=== PATIENT | female | born 1970 | race African-American/Black ===

== ENCOUNTER 2016-03-02 11:05 | Emergency (ER) | payer OTHER ==
[~2016-03-02] VITALS: Ht 165.1 cm; Wt 72.6 kg
[~2016-03-02 11:05] MED LIST: AMOXICILLIN500 MG PO; IBUPROFEN100 M1 PO; NKM; NORCO 5-325 TA1 EACH PO; PHENERGAN25 M1 PO; RANITIDINE HCL150 MG PO
[2016-03-02] MEDS ORDERED: Ketorolac 60mg Inj IM ONE (12:00)
[2016-03-02] MEDS ORDERED: IBUPROFEN600 MG ORAL (13:36)
[2016-03-02] MEDS ORDERED: TRAMADOL HCL50 MG ORAL (13:36)
[2016-03-02] MEDS ORDERED: ZITHROMAX250 MG ORAL (13:52)
[2016-03-02] MEDS ORDERED: PROMETHAZINE-D118 ML ORAL (13:52)
[2016-03-02 13:56] VITALS: BP 132/90
--- NOTE | 2016-03-02 14:05 | Diagnostic Imaging Report ---
Indication: The spine Comparison: 11/17/09 2 views of the chest obtained. Findings: Cardiomediastinal silhouette and pulmonary vascularity are within normal limits for age. The diaphragmatic contour is smooth and costophrenic angles are sharp. No pleural effusions are identified. The bones are unremarkable. Impression: No acute disease
--- NOTE | 2016-03-02 14:05 | Diagnostic Imaging Report ---
Indication: Pain Findings: 3 views of the right shoulder were obtained. No acute fractures, malalignment, erosions or periostitis are identified. Bone mineralization is within normal limits. Soft tissues are unremarkable. Impression: Negative examination of the shoulder.
--- NOTE | 2016-03-02 19:38 | Emergency Room Report ---
History of Present Illness General Chief Complaint: Pain Source: Patient Present Illness HPI Patient complains of severe R shoulder and chest pain. This began 2 days ago after working out (when initially felt) and then worsened after bowling with her children. Pain 10/10, sharp, worsened with moving her arm. Some also in chest. Tried to use ice but this worsened the pain and made it difficult to move here arm. No numbness of hand. R handed. Later she reports several days of URI sy with green sputum. Feverish. This preceded the shoulder pain. No NVD, not . Allergies: Coded Allergies: No Known Allergies (Verified Allergy, Unknown, 11/26/09) Patient History Past Medical History: see triage record Social History: Reports: smoking Social History Narrative [facility] Last Menstrual Period: 02/21/16 Reviewed Nursing Documentation: PMH: Agreed, PSxH: Agreed Nursing Documentation-PMH Hx Hypertension: Yes Hx COPD: Yes - CURRENT SMOKER Hx Diabetes: Yes Hx Gastrointestinal Problems: Yes Review of Systems Constitutional: Denies: fever ENT: Denies: throat pain Respiratory: Reports: see HPI Cardiovascular: Reports: see HPI Gastrointestinal: Reports: see HPI Genitourinary: Reports: see HPI Musculoskeletal: Reports: see HPI Skin: Denies: rash Neurological: Reports: see HPI Physical Exam Vital Signs Date Time Temp Pulse Resp B/P Pulse Ox O2 Delivery O2 Flow Rate FiO2 03/02/16 11:24 98.1 82 20 150/98 97 Room Air Sp02 EP Interpretation: reviewed, normal General Appearance: well appearing, no apparent distress, GCS 15 Head: normocephalic, atraumatic Eyes: bilateral eye PERRL, bilateral eye normal inspection ENT: hearing grossly normal, normal voice, moist mucus membranes Neck: full range of motion, supple Respiratory: lungs clear, no respiratory distress, speaking full sentences, other - some R chest wall tenderness Cardiovascular #1: regular rate, rhythm Cardiovascular #2: 2+ radial (R) Gastrointestinal: normal inspection Musculoskeletal: digits/nails normal, gait/station normal, no calf tenderness, decreased range of mation - R shoulder due to pain, no AC joint pain. No deformity. No elbow pain, hand with FROM. Neurologic: alert, motor strength/tone normal, sensory intact, normal gait Psychiatric: mood/affect normal Skin: no rash Medical Decision Making Diagnostic Impression: Primary Impression: Chest wall muscle strain Qualified Codes: S29.011A - Strain of muscle and tendon of front wall of thorax, initial encounter Additional Impressions: Right shoulder strain Qualified Codes: S46.911A - Strain of unspecified muscle, fascia and tendon at shoulder and upper arm level, right arm, initial encounter Bronchitis ER Course Patient presents with severe R shoulder and chest wall tenderness. DDx: strain , tendonitis, bursitis amongst others. Xrays indicated. Also analgesics ordered. Xrays normal. Improved with treatment. Sling applied by tech (had to wait as patient talking with customer support executive) and position excellent with normal neurovasc as examined by me. Patient stable for outpatient observation and treatment. At d/c , patient states has been coughing green phlegm. Insisting on antibiotics and cough medicine. She states she reported these sy at triage ( but review of notes does not show this). Chest X-Ray Diagnostic Results EP Interpretation: Yes Findings: no consolidation, no effusion, no pneumothorax Number of Views: 2 Other X-Ray Diagnostic Results Other X-Ray Diagnostic Results : X-Ray Ordered: R shoulder EP Interpretation: Yes Findings: no fractures, no dislocation, no soft tissue swelling, other - some min DJD Number of Views: 3 Last Vital Signs Date Time Temp Pulse Resp B/P Pulse Ox O2 Delivery O2 Flow Rate FiO2 03/02/16 13:56 66 16 132/90 100 Room Air 03/02/16 13:56 97.7 Status: improved Disposition: HOME, SELF-CARE Condition: Improved Scripts Azithromycin* (ZITHROMAX*) 250 Mg Tablet 250 MG ORAL DAILY, #6 TAB 0 Refills Take two tables once daily for 1 day, then one tablet once daily for 4 days. Prov: Ino Crook M.D. 03/02/16 D-Methorphan Hb/Prometh Hcl* (PROMETHAZINE-DM SYRUP*) 118 Ml Syrup 5 ML ORAL Q6H Y for For Cough, #60 ML 0 Refills Prov: Ino Crook M.D. 03/02/16 Ibuprofen* (MOTRIN*) 600 Mg Tablet 600 MG ORAL Q6H Y for For Pain, #20 TAB Prov: Ino Crook M.D. 03/02/16 Tramadol Hcl* (ULTRAM*) 50 Mg Tablet 50 MG ORAL Q6H Y for For Pain, #16 TAB 0 Refills Prov: Ino Crook M.D. 03/02/16 Patient Instructions: Muscle Strain Additional Instructions: Heat and rest. Follow up with your MD. Ino Crook M.D. Mar 02, 2016 19:38
== END 2016-03-02 13:56 | disposition home or self-care (01) ==
LOC: EMR 12:26
DX: S29.011A Strain of muscle and tendon of front wall of thorax, initial encounter (principal); S46.911A Strain of unspecified muscle, fascia and tendon at shoulder and upper arm level, right arm, initial encounter; X58.XXXA Exposure to other specified factors, initial encounter; Y93.9 Activity, unspecified; Y92.9 Unspecified place or not applicable; Y99.9 Unspecified external cause status; J40 Bronchitis, not specified as acute or chronic; M25.511 Pain in right shoulder; R07.9 Chest pain, unspecified; F17.200 Nicotine dependence, unspecified, uncomplicated; I10 Essential (primary) hypertension; E11.9 Type 2 diabetes mellitus without complications; J44.9 Chronic obstructive pulmonary disease, unspecified; Z87.19 Personal history of other diseases of the digestive system
CPT/HCPCS: 71020; 96372; 99283

== ENCOUNTER 2016-07-12 19:53 | Emergency (ER) | payer OTHER ==
[~2016-07-12] VITALS: Ht 165.1 cm; Wt 72.6 kg
[~2016-07-12 19:53] MED LIST changes: +IBUPROFEN600 MG ORAL; +PROMETHAZINE-D118 ML ORAL; +TRAMADOL HCL50 MG ORAL; +ZITHROMAX250 MG ORAL
[2016-07-12] MEDS ORDERED: Fluconazole 100mg tab ORAL ONE (21:30)
[2016-07-12] MEDS ORDERED: FLUCONAZOLE100 MG ORAL (21:31)
[2016-07-12 21:45] VITALS: BP 138/96
--- NOTE | 2016-07-16 13:01 | Emergency Room Report ---
History of Present Illness General Chief Complaint: Vaginal Source: Patient Present Illness HPI Is a 45-year-old female presented after increased vaginal discharge. Patient reported having increased white discharge. Patient reported having no recent change in sexual partners. Patient reported having recent use of a skin care products which may have caused some irritation. The patient denied fever. She denied any severe pain. Allergies: Coded Allergies: No Known Allergies (Verified Allergy, Unknown, 11/26/09) Patient History Past Medical History: see triage record Last Menstrual Period: JUNE 25 Now: No : 6 Para: 2 Reviewed Nursing Documentation: PMH: Agreed, PSxH: Agreed Nursing Documentation-PM Past Medical History: No Stated History Hx Hypertension: Yes Hx COPD: Yes - CURRENT SMOKER Hx Diabetes: Yes Hx Gastrointestinal Problems: Yes Review of Systems All Other Systems: negative except mentioned in HPI Physical Exam Vital Signs Date Time Temp Pulse Resp B/P Pulse Ox O2 Delivery O2 Flow Rate FiO2 07/12/16 20:23 97.9 112 18 138/96 99 Room Air General Appearance: well appearing, no apparent distress Head: normocephalic, atraumatic ENT: hearing grossly normal, normal voice Neck: full range of motion, supple Respiratory: no respiratory distress, speaking full sentences Genitourinary: other - white vaginal discharge, no cmt or adnexal tenderness Musculoskeletal: no calf tenderness Neurologic: normal gait Psychiatric: mood/affect normal Skin: no rash Medical Decision Making Diagnostic Impression: Primary Impression: Vaginitis ER Course Patient presented for vaginal discharge. Differential diagnosis included was not limited to bacterial vaginosis, gonorrhea, Chlamydia, , yeast infection among others. Patient's benign exam and does not appear to require any further imaging or laboratory testing at this time. Patient was empirically treated with Diflucan for or what appears to be yeast infection.The patient is advised to follow up with [facility] in 1-2 days. Patient is advised to return if any worsening condition or if any changes in status that are concerning. Last Vital Signs Date Time Temp Pulse Resp B/P Pulse Ox O2 Delivery O2 Flow Rate FiO2 07/12/16 21:45 97.9 18 138/96 99 Room Air 07/12/16 20:23 112 Status: improved Disposition: HOME, SELF-CARE Condition: Stable Scripts Fluconazole (FLUCONAZOLE) 100 Mg Tablet 100 MG ORAL DAILY, #1 TAB 0 Refills Prov: Daniel Prabhakar 07/12/16 Referrals: STACI [facility]N,REFERRI (PCP) Patient Instructions: Vaginitis Daniel Prabhakar July 16, 2016 13:01
== END 2016-07-12 21:45 | disposition home or self-care (01) ==
LOC: EMR 20:55
DX: N76.0 Acute vaginitis (principal); J44.9 Chronic obstructive pulmonary disease, unspecified; F17.200 Nicotine dependence, unspecified, uncomplicated; E11.9 Type 2 diabetes mellitus without complications; I10 Essential (primary) hypertension
CPT/HCPCS: 99283

== ENCOUNTER 2016-09-08 13:27 | Emergency (ER) | payer OTHER ==
[~2016-09-08] VITALS: Ht 165.1 cm; Wt 68.5 kg
[~2016-09-08 13:27] MED LIST changes: +FLUCONAZOLE100 MG ORAL
[2016-09-08 14:00] VITALS: BP 124/78
[2016-09-08] MEDS: Norco 7.5mg/325mg tab ORAL ONE ×2 (14:15→14:53)
[2016-09-08 14:18] LABS: APPEARANCE,URINE SLIGHTLY CLOUDY; KETONES,URINE NEGATIVE (NEGATIVE); LEUKOCYTE ESTERASE ,URINE 1+ (NEGATIVE); NITRITE,URINE NEGATIVE (NEGATIVE); PH,URINE 5 (4.5-8.0); PROTEIN,URINE 1+ (NEGATIVE); UROBILINOGEN,URINE 1 MG/DL (0.0-1.0)
[2016-09-08 14:28] LABS: BACTERIA,URINE FEW /HPF; ICTOTEST NEGATIVE; RBC,URINE 60-80 /HPF (0 - 2); SQUAMOUS EPITHELIAL CELL,UR FEW /LPF (NONE/OCC)
--- NOTE | 2016-09-08 14:43 | Emergency Room Report ---
History of Present Illness General Chief Complaint: Female Urogenital Problems Source: Patient Present Illness HPI 45-year-old female presents to the emergency department complaining of abdominal cramping rated as 9/10 in severity with vaginal bleeding x3 days. Patient states that she just finished her period on August 23 and that she has always been very regular every 28 days. Patient denies history of fibroids, STDs, ovarian cyst. Patient denies . Patient also reports several episodes of loose stool. She denies dysuria, flank pain, nausea, vomiting, fevers, chills, rashes. Patient states her pain is generalized , however primarily in the lower midline abdomen. she denies blood in the stool or black tarry stools. She denies past medical history otherwise she denies medications. Denies CP, Palpitations, LOC, AMS, dizziness, Changes in Vision, Sensation, paresthesias, or a sudden severe headache.. Allergies: Coded Allergies: No Known Allergies (Verified Allergy, Unknown, 11/26/09) Patient History Past Medical History: see triage record Past Surgical History: none Pertinent Family History: none Last Menstrual Period: Now: No Immunizations: UTD Reviewed Nursing Documentation: PMH: Agreed, PSxH: Agreed Nursing Documentation-PMH Past Medical History: No Stated History Hx Hypertension: Yes Hx COPD: Yes - CURRENT SMOKER Hx Diabetes: Yes Hx Gastrointestinal Problems: Yes Review of Systems All Other Systems: negative except mentioned in HPI Physical Exam Vital Signs Date Time Temp Pulse Resp B/P Pulse Ox O2 Delivery O2 Flow Rate FiO2 09/08/16 13:44 98.2 86 20 115/75 98 Sp02 EP Interpretation: reviewed, normal General Appearance: no apparent distress, alert, GCS 15, non-toxic Head: normocephalic, atraumatic Eyes: bilateral eye PERRL, bilateral eye normal inspection ENT: hearing grossly normal, normal pharynx, no angioedema, normal voice Neck: full range of motion, supple/symm/no masses Respiratory: chest non-tender, lungs clear, normal breath sounds, speaking full sentences Cardiovascular #1: regular rate, rhythm, no edema Gastrointestinal: normal bowel sounds, non tender, soft, no guarding, no rebound, other - Negative [place] signs, Negative [place]Bur[place]'s sign, Negative Rosvigns Sign, Negative Psoas, No Peritoneal signs. Rectal: deferred Genitourinary: normal inspection, no CVA tenderness Musculoskeletal: back normal, gait/station normal, normal range of motion, non- tender, no calf tenderness Neurologic: alert, oriented x3, responsive, motor strength/tone normal, sensory intact, speech normal Psychiatric: judgement/insight normal, memory normal, mood/affect normal Skin: normal color, no rash, warm/dry, well hydrated Lymphatic: no adenopathy Medical Decision Making PA Attestation Dr. emery is my supervising Physician whom patient management has been discussed with. Diagnostic Impression: Primary Impression: Ovarian cyst Additional Impression: Uterine fibroid Qualified Codes: D25.9 - Leiomyoma of uterus, unspecified ER Course 45-year-old female presents to the emergency department complaining of abdominal cramping rated as 9/10 in severity with vaginal bleeding x3 days. Patient states that she just finished her period on August 23 and that she has always been very regular every 28 days. Patient denies history of fibroids, STDs, ovarian cyst. Patient denies . Patient also reports several episodes of loose stool. She denies dysuria, flank pain, nausea, vomiting, fevers, chills, rashes. Patient states her pain is generalized , however primarily in the lower midline abdomen. she denies blood in the stool or black tarry stools. She denies past medical history otherwise she denies medications. Denies CP, Palpitations, LOC, AMS, dizziness, Changes in Vision, Sensation, paresthesias, or a sudden severe headache.. Ddx considered but are not limited to DUB, Fibroids, miscarriage, diverticulitis, PID, tubo-ovarian abscess, ovarian cyst. Vital signs: are WNL, pt. is afebrile H&PE are most consistent with ORDERS: -CBC, CMP, LIPASE: unremarkable other than mild anemia -UA: presence of occult blood and rbc consistent with vaginal bleeding. no infection noted. -URINE HCG: negative -Pelvic US Complete: positive for uterine fibroids, ruptured ovarian cyst, no free fluid in the culdesac per preliminary US report. ED INTERVENTIONS: - Pt. declined [place] PO and states she is nauseated and wants IV pain medication -- pt noted to be actively eating doughnuts, and fast food that she brought with her to ED. no witnessed episodes of vomiting, noted to be tolerating food well. - 60mg IM Toradol DISCHARGE: At this time pt. is stable for d/c to home. Will provide printed patient care instructions, and any necessary prescriptions. Care plan and follow up instructions have been discussed with the patient prior to discharge. Labs Test 09/08/16 14:01 09/08/16 14:41 Urine Color [place] Urine Appearance Slightly cloudy Urine pH 5 (4.5-8.0) Urine Specific [place] 1.025 (1.005-1.035) Urine Protein 1+ (NEGATIVE) Urine Glucose (UA) Negative (NEGATIVE) Urine Ketones Negative (NEGATIVE) Urine Occult Blood 5+ (NEGATIVE) Urine Nitrite Negative (NEGATIVE) Urine Bilirubin Negative (NEGATIVE) Urine Ictotest Negative Urine Urobilinogen 1 MG/DL (0.0-1.0) Urine Leukocyte Esterase 1+ (NEGATIVE) Urine RBC 60-80 /HPF (0 - 2) Urine WBC 2-4 /HPF (0 - 2) Urine Squamous Epithelial Cells Few /LPF (NONE/OCC) Urine Bacteria Few /HPF (NONE) Urine HCG, Qualitative Negative White Blood Count 5.3 K/UL (4.8-10.8) Red Blood Count 4.28 M/UL (4.20-5.40) Hemoglobin 10.4 G/DL (12.0-16.0) Hematocrit 35.4 % (37.0-47.0) Mean Corpuscular Volume 83 FL (80-99) Mean Corpuscular Hemoglobin 24.4 PG (27.0-31.0) Mean Corpuscular Hemoglobin Concent 29.5 G/DL (32.0-36.0) Red Cell Distribution Width 16.5 % (11.6-14.8) Platelet Count 474 K/UL (150-450) Mean Platelet Volume 5.6 FL (6.5-10.1) Neutrophils (%) (Auto) 45.8 % (45.0-75.0) Lymphocytes (%) (Auto) 42.0 % (20.0-45.0) Monocytes (%) (Auto) 10.2 % (1.0-10.0) Eosinophils (%) (Auto) 0.7 % (0.0-3.0) Basophils (%) (Auto) 1.4 % (0.0-2.0) Sodium Level 138 mEQ/L (135-145) Potassium Level 3.5 mEQ/L (3.4-4.9) Chloride Level 103 mEQ/L (98-107) Carbon Dioxide Level 26 mEQ/L (20-30) Anion Gap 9 (5-15) Blood Urea Nitrogen 6 mg/dL (7-23) Creatinine 0.9 mg/dL (0.5-0.9) Estimat Glomerular Filtration Rate > 60 mL/min (>60) Glucose Level 83 mg/dL (74-106) Calcium Level 9.1 mg/dL (8.6-10.2) Total Bilirubin 0.3 mg/dL (0.0-1.2) Aspartate Amino Transf (AST/SGOT) 15 U/L (5-40) Alanine Aminotransferase (ALT/SGPT) 14 U/L (3-33) Alkaline Phosphatase 45 U/L (35-104) Total Protein 6.9 g/dL (6.6-8.7) Albumin 4.0 g/dL (3.5-5.2) Globulin 2.9 g/dL Albumin/Globulin Ratio 1.3 (1.0-2.7) Lipase 25 U/L (< 60) Last Vital Signs Date Time Temp Pulse Resp B/P Pulse Ox O2 Delivery O2 Flow Rate FiO2 09/08/16 13:44 98.2 86 20 115/75 98 Disposition: HOME, SELF-CARE Condition: Stable Scripts Hydrocodone Bit/Acetaminophen 5-325* (NORCO 5-325 TABLET*) 1 Each Tablet 1 TAB ORAL Q6HR Y for For Pain, #10 TAB Prov: Geovanna Mahoney P.A. 09/08/16 Ibuprofen* (MOTRIN*) 600 Mg Tablet 600 MG ORAL THREE TIMES A DAY, #30 TAB 0 Refills Prov: Geovanna Mahoney P.A. 09/08/16 Patient Instructions: Medical Screening Exam, Ovarian Cyst, Uterine Fibroids Additional Instructions: Take medications as directed. Follow up with a Primary Care Provider for OBGYN referral in 3-5 days, even if your symptoms have resolved. --Please review list of primary care clinics, if you do not already have a primary care provider, or OBGYN Return sooner if new symptoms occur, or current symptoms become worse. - Please note that this Emergency Department Report was dictated using dooubshank inspector technology software, occasionally this can lead to erroneous entry secondary to interpretation by the dictation equipment. Geovanna Mahoney Sep 08, 2016 14:43
[2016-09-08] MEDS ORDERED: Ketorolac 30mg Inj IV ONE (15:00)
[2016-09-08 15:05] LABS: BASOPHILS % (AUTO) 1.4 % (0.0-2.0); EOSINOPHILS % (AUTO) 0.7 % (0.0-3.0); MEAN CORPUSCULAR HEMOGLOBIN 24.4 PG (27.0-31.0); MEAN CORPUSCULAR HGB CONC 29.5 G/DL (32.0-36.0); MEAN CORPUSCULAR VOLUME 83 FL (80-99); MEAN PLATELET VOLUME 5.6 FL (6.5-10.1); MONOCYTES % (AUTO) 10.2 % (1.0-10.0); NEUTROPHILS % (AUTO) 45.8 % (45.0-75.0); PLATELET COUNT 474 K/UL (150-450); RED BLOOD COUNT 4.28 M/UL (4.20-5.40); RED CELL DISTRIBUTION WIDTH 16.5 % (11.6-14.8); WHITE BLOOD COUNT 5.3 K/UL (4.8-10.8)
[2016-09-08 15:25] LABS: ALANINE AMINOTRANSFERASE 14 U/L (3-33); ALBUMIN/GLOBULIN RATIO 1.3 (1.0-2.7); ANION GAP 9 (5-15); ASPARTATE AMINO TRANSFERASE 15 U/L (5-40); CALCIUM 9.1 mg/dL (8.6-10.2); CARBON DIOXIDE 26 mEQ/L (20-30); CHLORIDE 103 mEQ/L (98-107); CREATININE 0.9 mg/dL (0.5-0.9); GLOMERULAR FILTRATION RATE > 60 mL/min (>60); HEMOLYSIS 0; LIPASE 25 U/L (< 60); POTASSIUM 3.5 mEQ/L (3.4-4.9); SODIUM 138 mEQ/L (135-145); TOTAL PROTEIN 6.9 g/dL (6.6-8.7)
[2016-09-08] MEDS ORDERED: IBUPROFEN600 MG ORAL (16:17)
[2016-09-08] MEDS ORDERED: ACETAMINOPHEN-1 EAC1 ORAL (16:21)
[2016-09-08] MEDS ORDERED: NORCO 5-325 TA1 EAC1 ORAL (17:13)
[2016-09-08 17:25] VITALS: BP 122/79
--- NOTE | 2016-09-08 18:04 | Diagnostic Imaging Report ---
Indication: Vaginal bleeding and cramping, negative test Technique: Present on transvaginal images Comparison: Reference made to CT abdomen pelvis 12/18/2015 Findings: Uterus is retroverted, measures 10 cm length by 5.6 cm AP. Within the endometrium, there are multiple fibroids measuring up to 2.3 cm long axis dimension. The endometrium is not clearly identified, grossly measures about 3 mm thick. Left ovary measures 2.5 cm length. Right ovary measures 2.6 in meters in length, demonstrates an 18 mm cyst with low-level internal echoes consistent with hemorrhage. No free cul-de-sac fluid. No adnexal mass Impression: 18 mm hemorrhagic right ovarian cyst Multiple small uterine fibroids No adnexal mass
== END 2016-09-08 17:25 | disposition home or self-care (01) ==
LOC: EMR 14:10
DX: N83.201 Unspecified ovarian cyst, right side (principal); D25.9 Leiomyoma of uterus, unspecified; F17.200 Nicotine dependence, unspecified, uncomplicated; E11.9 Type 2 diabetes mellitus without complications; I10 Essential (primary) hypertension
CPT/HCPCS: 36415; 76830; 76856; 80053; 81003; 81025; 83690; 85025; 96374; 99284; J1885

== ENCOUNTER 2016-10-22 07:43 | Emergency (ER) | payer OTHER ==
[~2016-10-22] VITALS: Ht 165.1 cm; Wt 68.9 kg
[~2016-10-22 07:43] MED LIST changes: +ACETAMINOPHEN-1 EAC1 ORAL; +NORCO 5-325 TA1 EAC1 ORAL
[2016-10-22 08:15] VITALS: BP 150/112
[2016-10-22] MEDS ORDERED: Morphine Sulfate 4mg/ml Inj IVP ONE (08:15)
[2016-10-22 08:40] LABS: APPEARANCE,URINE SLIGHTLY CLOUDY; BASOPHILS % (AUTO) 2.3 % (0.0-2.0); EOSINOPHILS % (AUTO) 0.6 % (0.0-3.0); KETONES,URINE NEGATIVE (NEGATIVE); LEUKOCYTE ESTERASE ,URINE 1+ (NEGATIVE); MEAN CORPUSCULAR HEMOGLOBIN 23.3 PG (27.0-31.0); MEAN CORPUSCULAR VOLUME 78 FL (80-99); MONOCYTES % (AUTO) 14.4 % (1.0-10.0); NEUTROPHILS % (AUTO) 49.7 % (45.0-75.0); NITRITE,URINE NEGATIVE (NEGATIVE); PH,URINE 6.5 (4.5-8.0); PLATELET COUNT 363 K/UL (150-450); PROTEIN,URINE NEGATIVE (NEGATIVE); RED BLOOD COUNT 4.15 M/UL (4.20-5.40); RED CELL DISTRIBUTION WIDTH 15.8 % (11.6-14.8); UROBILINOGEN,URINE NORMAL MG/DL (0.0-1.0); WHITE BLOOD COUNT 4.4 K/UL (4.8-10.8)
[2016-10-22 08:48] LABS: ALANINE AMINOTRANSFERASE 12 U/L (3-33); ALBUMIN/GLOBULIN RATIO 1.4 (1.0-2.7); ANION GAP 13 (5-15); ASPARTATE AMINO TRANSFERASE 15 U/L (5-40); CALCIUM 8.8 mg/dL (8.6-10.2); CARBON DIOXIDE 22 mEQ/L (20-30); CHLORIDE 104 mEQ/L (98-107); CREATININE 0.8 mg/dL (0.5-0.9); GLOMERULAR FILTRATION RATE > 60 mL/min (>60); HEMOLYSIS 1; LIPASE 21 U/L (< 60); POTASSIUM 3.7 mEQ/L (3.4-4.9); SODIUM 139 mEQ/L (135-145); TOTAL PROTEIN 6.9 g/dL (6.6-8.7)
--- NOTE | 2016-10-22 08:48 | Emergency Room Report ---
History of Present Illness General Chief Complaint: Abdominal Pain Source: Patient Present Illness HPI 46-year-old female presents ED complaining of abdominal pain x3 days. Has pain to the right side of abdomen, sharp, 10 out of 10, nonradiating. Denies fevers or chills. Denies nausea or vomiting. Denies vaginal bleeding or discharge. States that she's been here in the past for abdominal pain. Last visit in August patient noted to have uterine fibroid and hemorrhagic cyst. Patient states this pain is much different. No aggravating or relieving factors. Denies any other associated symptoms Allergies: Coded Allergies: No Known Allergies (Verified Allergy, Unknown, 11/26/09) Patient History Past Medical History: none Past Surgical History: none Pertinent Family History: none Social History: Denies: smoking, alcohol use, drug use Last Menstrual Period: 10/09/16 Now: No Immunizations: UTD Reviewed Nursing Documentation: PMH: Agreed, PSxH: Agreed Nursing Documentation-PMH Past Medical History: No Stated History Hx Hypertension: No Hx COPD: No - CURRENT SMOKER Hx Diabetes: No Hx Gastrointestinal Problems: No Review of Systems All Other Systems: negative except mentioned in HPI Physical Exam Vital Signs Date Time Temp Pulse Resp B/P (MAP) Pulse Ox O2 Delivery O2 Flow Rate FiO2 10/22/16 07:52 98.2 90 20 153/98 100 Room Air Sp02 EP Interpretation: reviewed, normal General Appearance: no apparent distress, alert, GCS 15, non-toxic, mild distress Head: normocephalic, atraumatic Eyes: bilateral eye normal inspection, bilateral eye PERRL ENT: hearing grossly normal, normal pharynx, no angioedema, normal voice Neck: full range of motion, supple/symm/no masses Respiratory: chest non-tender, lungs clear, normal breath sounds, speaking full sentences Cardiovascular #1: regular rate, rhythm, no edema Cardiovascular #2: 2+ carotid (R), 2+ carotid (L), 2+ radial (R), 2+ radial (L) , 2+ dorsalis pedis (R), 2+ dorsalis pedis (L) Gastrointestinal: normal bowel sounds, soft, non-distended, no guarding, no rebound, tenderness Rectal: deferred Genitourinary: normal inspection, no CVA tenderness Musculoskeletal: back normal, gait/station normal, normal range of motion, non- tender Neurologic: alert, oriented x3, responsive, motor strength/tone normal, sensory intact, speech normal Psychiatric: judgement/insight normal, memory normal, mood/affect normal, no suicidal/homicidal ideation Reflexes: 3+ bicep (R), 3+ bicep (L), 3+ tricep (R), 3+ tricep (L), 3+ knee (R) , 3+ knee (L) Skin: normal color, no rash, warm/dry, well hydrated Lymphatic: no adenopathy Medical Decision Making Diagnostic Impression: Primary Impression: Abdominal pain Qualified Codes: R10.10 - Upper abdominal pain, unspecified Additional Impression: Enteritis ER Course Hospital Course 46-year-old F presents to ED with abdominal pain Differential diagnosis includes-appendicitis, cholecystitis, small bowel obstruction, gastritis, Clinical course Patient placed on stretcher. After initial history and physical I ordered labs , IV fluids, pain medications and CT scan Labs - no leukocytosis, electrolytes ok, LFTs normal, UA unremarkable CT scan shows no acute pathology ? enteritis Upon reassessment, patient states pain has improved. Given improvement in symptoms and lack of acute findings, I believe patient can be safely discharged to home. Patient agrees with plan I feel this is a highly complex case requiring extensive working including EKG/ Rhythm strip, Xray/CT/US, Blood/urine lab work, repeat exams while in ED, and administration of strong opiates/narcotics for pain control, admission to hospital or close patient follow up. Diagnosis - abdominal pain, enteritis Stable and discharged to home with Rx Bentyl, Zantac, Tramadol. Followup with PMD. Return to ED if symptoms recur or worsen Labs Test 10/22/16 08:21 White Blood Count 4.4 K/UL (4.8-10.8) Red Blood Count 4.15 M/UL (4.20-5.40) Hemoglobin 9.7 G/DL (12.0-16.0) Hematocrit 32.2 % (37.0-47.0) Mean Corpuscular Volume 78 FL (80-99) Mean Corpuscular Hemoglobin 23.3 PG (27.0-31.0) Mean Corpuscular Hemoglobin Concent 30.0 G/DL (32.0-36.0) Red Cell Distribution Width 15.8 % (11.6-14.8) Platelet Count 363 K/UL (150-450) Mean Platelet Volume 6.0 FL (6.5-10.1) Neutrophils (%) (Auto) 49.7 % (45.0-75.0) Lymphocytes (%) (Auto) 33.0 % (20.0-45.0) Monocytes (%) (Auto) 14.4 % (1.0-10.0) Eosinophils (%) (Auto) 0.6 % (0.0-3.0) Basophils (%) (Auto) 2.3 % (0.0-2.0) Urine Color Pale yellow Urine Appearance Slightly cloudy Urine pH 6.5 (4.5-8.0) Urine Specific [place] 1.020 (1.005-1.035) Urine Protein Negative (NEGATIVE) Urine Glucose (UA) Negative (NEGATIVE) Urine Ketones Negative (NEGATIVE) Urine Occult Blood Negative (NEGATIVE) Urine Nitrite Negative (NEGATIVE) Urine Bilirubin Negative (NEGATIVE) Urine Urobilinogen Normal MG/DL (0.0-1.0) Urine Leukocyte Esterase 1+ (NEGATIVE) Urine RBC 0-2 /HPF (0 - 2) Urine WBC 2-4 /HPF (0 - 2) Urine Squamous Epithelial Cells Moderate /LPF (NONE/OCC) Urine Bacteria Few /HPF (NONE) Urine HCG, Qualitative Negative Sodium Level 139 mEQ/L (135-145) Potassium Level 3.7 mEQ/L (3.4-4.9) Chloride Level 104 mEQ/L (98-107) Carbon Dioxide Level 22 mEQ/L (20-30) Anion Gap 13 (5-15) Blood Urea Nitrogen 9 mg/dL (7-23) Creatinine 0.8 mg/dL (0.5-0.9) Estimat Glomerular Filtration Rate > 60 mL/min (>60) Glucose Level 86 mg/dL (74-106) Calcium Level 8.8 mg/dL (8.6-10.2) Total Bilirubin 0.3 mg/dL (0.0-1.2) Aspartate Amino Transf (AST/SGOT) 15 U/L (5-40) Alanine Aminotransferase (ALT/SGPT) 12 U/L (3-33) Alkaline Phosphatase 43 U/L (35-104) Total Protein 6.9 g/dL (6.6-8.7) Albumin 4.1 g/dL (3.5-5.2) Globulin 2.8 g/dL Albumin/Globulin Ratio 1.4 (1.0-2.7) Lipase 21 U/L (< 60) CT/MRI/US Diagnostic Results CT/MRI/US Diagnostic Results : Imaging Test Ordered: CT A/P Impression enteritis. no other acute process Last Vital Signs Date Time Temp Pulse Resp B/P (MAP) Pulse Ox O2 Delivery O2 Flow Rate FiO2 10/22/16 08:15 98.2 70 15 150/112 100 Room Air Status: improved Disposition: ADMITTED INPATIENT Condition: Stable Scripts Tramadol Hcl* (ULTRAM*) 50 Mg Tablet 50 MG ORAL Q6H Y for For Pain, #30 TAB 0 Refills Prov: OLIVE PERRY M.D. 10/22/16 Ranitidine Hcl* (ZANTAC*) 150 Mg Tablet 150 MG ORAL TWICE A DAY, #30 TAB Prov: OLIVE PERRY M.D. 10/22/16 Dicyclomine Hcl* (BENTYL*) 10 Mg Capsule 10 MG ORAL FOUR TIMES A DAY, #20 CAP Prov: OLIVE PERRY M.D. 10/22/16 Referrals: STACI WOODARD [facility]ON [facility]ICKERS,REFERRI (PCP) OLIVE PERRY M.D. Oct 22, 2016 08:48
[2016-10-22 08:50] LABS: BACTERIA,URINE FEW /HPF; RBC,URINE 0-2 /HPF (0 - 2); SQUAMOUS EPITHELIAL CELL,UR MODERATE /LPF (NONE/OCC)
[2016-10-22 10:10] VITALS: BP 141/90
--- NOTE | 2016-10-22 10:43 | Diagnostic Imaging Report ---
Indication: Abdominal pain Technique: Continuous helical transaxial imaging of the abdomen and pelvis was obtained from the lung bases to the pubic symphysis during intravenous contrast administration. Coronal 2-D reformats were also obtained. Study obtained in a Siemens sensation [address] Total Dose length Product (DLP): [address] Dose Index Volume (CTDIvol): 16 mGy Comparison: None Findings: The lung bases are essentially clear. There is a small cyst in the right lobe of the liver. Gallbladder is unremarkable. There is no hydronephrosis. Aorta shows mural calcification. The pancreas, spleen and adrenal glands are unremarkable. Few diverticula are noted in the colon. There is thickening of the urinary bladder wall. The appendix is retrocecal and normal in appearance. The uterus is heterogeneous without prominent central endometrial hypoattenuation suggestive of fluid or blood, a finding that may be normal during certain phases of the menstrual cycle. Please correlate clinically. Relatively nondistended but fluid-filled loops of small bowel are noted throughout the abdomen. Query possibility of enteritis. Impression: Possible enteritis. Please correlate clinically. Fluid noted in the endometrial canal. This may be normal during certain phases of the menstrual cycle. Please correlate clinically. Normal appendix Liver cyst The CT scanner at [facility] is accredited by the [employer] and the scans are performed using dose optimization techniques as appropriate to a performed exam including Automatic Exposure control.
[2016-10-22] MEDS ORDERED: Ketorolac 30mg Inj IV ONE (11:15)
[2016-10-22 11:18] VITALS: BP 137/103
[2016-10-22] MEDS ORDERED: BENTYL10 MG ORAL (11:30)
[2016-10-22] MEDS ORDERED: RANITIDINE HCL150 MG ORAL (11:30)
[2016-10-22] MEDS ORDERED: TRAMADOL HCL50 MG ORAL (11:30)
[2016-10-22 11:42] VITALS: BP 139/85
[2016-10-22 11:45] VITALS: BP 139/85
== END 2016-10-22 11:45 | disposition home or self-care (01) ==
LOC: EMR 08:23
DX: R10.10 Upper abdominal pain, unspecified (principal); K52.9 Noninfective gastroenteritis and colitis, unspecified; F17.200 Nicotine dependence, unspecified, uncomplicated; K76.89 Other specified diseases of liver
CPT/HCPCS: 36415; 74177; 80053; 81003; 81025; 83690; 85025; 96361; 96374; 96375; 99284; J1885; J2270; Q9967

== ENCOUNTER 2018-09-16 23:33 | Emergency (ER) | payer OTHER ==
[~2018-09-16] VITALS: Ht 165.1 cm; Wt 78.5 kg
[~2018-09-16 23:33] MED LIST changes: +BENTYL10 MG ORAL; +RANITIDINE HCL150 MG ORAL
[2018-09-17 00:09] VITALS: BP 150/96
[2018-09-17] MEDS ORDERED: HYDROcodone/Acetamin 5/325 tab ORAL ONE (00:30)
[2018-09-17] MEDS ORDERED: Ketorolac 60mg Inj IM ONE (00:30)
--- NOTE | 2018-09-17 00:37 | NUR ---
Medicated as ordered, tolerated well, X-rays in progress.
--- NOTE | 2018-09-17 00:42 | NUR ---
ED Nurse Note: Xray at bedside.
[2018-09-17] MEDS ORDERED: TRAMADOL HCL50 MG ORAL (01:09)
[2018-09-17] MEDS ORDERED: IBUPROFEN600 MG ORAL (01:09)
--- NOTE | 2018-09-17 11:00 | Diagnostic Imaging Report ---
Indication: Left thigh pain Comparison: None Findings: 2 views of the left femur were obtained. No acute fractures, malalignment, erosions or periostitis are identified. Soft tissues are unremarkable. Impression: Negative examination of the femur
--- NOTE | 2018-09-19 21:52 | Emergency Room Report ---
History of Present Illness General Chief Complaint: Lower Extremity Injury Source: Patient Present Illness Allergies: Coded Allergies: No Known Allergies (Verified Allergy, Unknown, 11/26/09) Patient History Now: No : 5 Para: 4 Nursing Documentation-PMH Hx Hypertension: No Hx COPD: Yes - bronchitis Hx Diabetes: No Hx Gastrointestinal Problems: No Physical Exam Vital Signs Date Time Temp Pulse Resp B/P (MAP) Pulse Ox O2 Delivery O2 Flow Rate FiO2 09/17/18 00:09 98.2 118 16 150/96 (114) 99 Room Air Medical Decision Making Diagnostic Impression: Primary Impression: Muscle strain Last Vital Signs Date Time Temp Pulse Resp B/P (MAP) Pulse Ox O2 Delivery O2 Flow Rate FiO2 09/17/18 00:09 98.2 118 16 150/96 (114) 99 Room Air Disposition: HOME, SELF-CARE Condition: Stable Scripts Ibuprofen* (MOTRIN*) 600 Mg Tablet 600 MG ORAL Q8H PRN for For Pain, #30 TAB 0 Refills Prov: Daniel Prabhakar MD 09/17/18 Tramadol Hcl* (ULTRAM*) 50 Mg Tablet 50 MG ORAL Q6H PRN for For Pain, #12 TAB 0 Refills Prov: Daniel Prabhakar MD 09/17/18 Referrals: NON PHYSICIAN (PCP) Patient Instructions: Muscle Tear Daniel Prabhakar MD Sep 19, 2018 21:52
== END 2018-09-17 01:49 | disposition home or self-care (01) ==
LOC: EMR 09-17 01:05
DX: T14.8XXA Other injury of unspecified body region, initial encounter (principal); X58.XXXA Exposure to other specified factors, initial encounter; Y92.9 Unspecified place or not applicable; J44.9 Chronic obstructive pulmonary disease, unspecified
CPT/HCPCS: 96372; 99283